=== PATIENT | male | born 1950 | race Caucasian/White ===

== ENCOUNTER 2018-02-12 18:38 | Inpatient (IN) ==
[2018-02-13] MEDS ORDERED: Bisacodyl 10 MG Supp RECTAL PRN (02:40)
[2018-02-13] MEDS ORDERED: Acetaminophen 325 MG Tablet PO PRN (02:41)
[2018-02-13] MEDS ORDERED: Melatonin 5 MG Tablet PO PRN (02:44)
[2018-02-13] MEDS ORDERED: Sod Chloride 0.9% Inj 1,000 ML IV.CONT SCH (02:45)
[2018-02-13] MEDS ORDERED: Azithromycin Inj 500 MG in Sodium Chlor 0.9% Inj 250 ML IV.SIG SCH (05:00)
[2018-02-13] MEDS ORDERED: Heparin - SQ 10,000 UNITS/ML Vial SQ SCH (06:00)
[2018-02-13 06:48] LABS: Potassium 3.8 meq/L (3.5-5.1)
[2018-02-13 06:54] LABS: Calcium 7.9 mg/dL (8.5-10.1)
[2018-02-13 07:05] LABS: Baso # (Auto) 0.1 th/mm3 (0.0-0.2); Baso % (Auto) 0.6 % (0.0-2.0); Eos # (Auto) 0.1 th/mm3 (0.0-0.4); Eos % (Auto) 0.8 % (0.0-4.0); Hematocrit 29.6 % (39.0-51.0); Hemoglobin 9.9 gm/dL (13.0-17.0); Lymph # (Auto) 1.8 th/mm3 (1.0-4.8); Lymph % (Auto) 13.5 % (9.0-44.0); Mean Corpuscular HGB Conc 33.4 % (32.0-36.0); Mean Corpuscular Hemoglobin 25.7 pg (27.0-34.0); Mean Corpuscular Volume 77.1 fL (80.0-100.0); Mean Platelet Volume 9.2 fL (7.0-11.0); Mono # (Auto) 1.3 th/mm3 (0.0-0.9); Mono % (Auto) 9.7 % (0.0-8.0); Neut # (Auto) 9.9 th/mm3 (1.8-7.7); Neut % (Auto) 75.4 % (16.0-70.0); Platelet Count 240 th/mm3 (150-450); Red Blood Count 3.83 mil/mm3 (4.50-5.90); Red Cell Distribution Width 15.2 % (11.6-17.2); White Blood Count 13.2 th/mm3 (4.0-11.0)
[2018-02-13] MEDS ORDERED: guaiFENesin 600 MG ER Tablet PO SCH (09:00)
--- NOTE | 2018-02-13 11:09 | P.HP ---
History of Present Illness Primary Care Physician: UNKNOWN Chief Complaint: Change in mentation, fever History of Present Illness: 67-year-old male with known history of hypertension, hyper lipidemia, chronic back pain, cephalgia who presented to the hospital because of altered mental status, fever, cough. Patient states that he was in normal state of health until Wednesday evening when he stated that his noticed that he was not acting his normal self. He did not improved and on Wednesday he started having fever and cough so they brought him to the hospital for evaluation. Patient was found to have a fever of 102.9. Leukocytosis. Chest x-ray showing right lower lung pneumonia. Patient was recommended admission in the hospital under sepsis criteria secondary to pneumonia. At time of evaluating patient today he is completely alert and orientated. States that he broke his fever and he is feeling much better. Patient states that he does have a headache. He does suffer from chronic cephalgia, back pain. He does go to Dr. Merchant on a regular basis for pain management and neurology. - Diagnosis (1) Sepsis (2) Leukocytosis (3) Pneumonia (4) Febrile illness Inpatient Certification: I certify that the inpatient services were ordered in accordance with Medicare regulations governing the order. This includes certification that hospital inpatient services are reasonable and necessary and in the case of services not specified as inpatient-only under 42 CFR 419.22(n), that they are appropriately provided as inpatient services in accordance to with the 2-midnight benchmark under 43 CFR 412.3(e) Estimated Total Length of Stay (Days): 3 Plans for Post Hospital Care: Home Review of Systems All other systems reviewed negative except as stated in HPI Respiratory: Reports cough Neurologic: Reports behavioral changes [facility] - History History Provided By: Patient - Medical History Medical History: Medical History (Last Updated 02/13/18 @ 10:58 by RAGHAVENDRA Hand) Hyperlipidemia Chronic back pain Chronic headaches HTN (hypertension) - Surgical History Surgical History: Surgical History (Last Updated 02/13/18 @ 10:56 by RAGHAVENDRA Hand) History of tonsillectomy H/O hernia repair H/O knee surgery - Family History Family History: Family History (Last Updated 02/13/18 @ 10:56 by RAGHAVENDRA Hand) Father Family history of colon cancer Mother Family history of congestive heart failure - Tobacco History Second Hand Smoke Exposure: No Smoking Status: Former smoker Tobacco Type: Cigarettes - Alcohol History How Often Do You Have a Drink Containing Alcohol: Never - Substance Use History Substance History: No History of Abuse - Immunization History Tetanus Immunization: <5 Years Hx Influenza Vaccine This Season: Yes Medications and Allergies Active Medications: Active Medications Acetaminophen (Tylenol) 650 mg PO Q4H PRN PRN Reason: Temp > 100.4 Al Hydroxide/Mg Hydroxide (Milk Of Magnesia Liq) 30 ml PO Q12H PRN PRN Reason: Mild Constipation Albuterol (Duoneb Neb ([place])) 1 ampul NEB Q6HR WHILE AWAKE NEB [facility] Last Admin: 02/13/18 07:28 Dose: 1 ampul Bisacodyl (Dulcolax Supp) 10 mg RECTAL DAILY PRN PRN Reason: SEVERE CONSITIPATION Citalopram Hydrobromide (Celexa) 20 mg PO DAILY [facility] Divalproex Sodium (Depakote Dr) 500 mg PO BID [facility] Guaifenesin (Mucinex Er) 600 mg PO BID [facility] Last Admin: 02/13/18 09:27 Dose: 600 mg Heparin Sodium (Porcine) (Heparin Inj) 5,000 units SQ Q8H [facility] Last Admin: 02/13/18 05:19 Dose: 5,000 units Azithromycin 500 mg/ Sodium (Chloride) 250 mls @ 250 mls/hr IV.SIG Q24H [facility] Last Infusion: 02/13/18 06:20 Dose: Infused Ceftriaxone Sodium 1,000 mg/ (Sodium Chloride) 100 mls @ 200 mls/hr IV.SIG Q24H [facility] Last Infusion: 02/13/18 04:30 Dose: Infused Sodium Chloride (Ns Inj) 1,000 mls @ 100 mls/hr IV.CONT .Q10H [facility] Last Admin: 02/13/18 03:09 Dose: 100 mls/hr Lactulose (Lactulose Liq) 30 ml PO DAILY PRN PRN Reason: SEVERE CONSITIPATION Melatonin (Melatonin) 5 mg PO HS PRN PRN Reason: INSOMNIA Last Admin: 02/13/18 03:02 Dose: 5 mg Non-Formulary Medication (Omeprazole [Omeprazole]) 40 mg PO DAILY [facility] Non-Formulary Medication (Nortriptyline [Nortriptyline]) 100 mg PO HS [facility] Ondansetron HCl (Zofran Inj) 4 mg IV.PUSH Q6H PRN PRN Reason: NAUSEA OR VOMITING Sennosides (Senokot) 17.2 mg PO Q12H PRN PRN Reason: Moderate Constipation Allergies Allergy/AdvReac Type Severity Reaction Status Date / Time codeine Allergy Severe Rash Verified 02/12/18 18:45 Home Medications Medication Instructions Recorded Confirmed Type alendronate 70 mg PO QWEEK 02/12/18 02/12/18 History citalopram 20 mg PO DAILY 02/12/18 02/12/18 History divalproex [Depakote] 500 mg PO BID 02/12/18 02/12/18 History fenofibrate 160 mg PO DAILY 02/12/18 02/12/18 History hydrocodone-acetaminophen [[place]] 1 tab PO Q6H 02/12/18 02/12/18 History lovastatin 40 mg PO DAILY 02/12/18 02/12/18 History nortriptyline 100 mg PO HS 02/12/18 02/12/18 History omeprazole 40 mg PO DAILY 02/12/18 02/12/18 History Exam Vital signs: Vital Signs 02/13/18 03:08 02/13/18 07:46 02/13/18 08:00 Temperature 98.8 F 100 F H Pulse Rate 78 91 H 91 H Respiratory Rate 18 18 20 Blood Pressure 104/54 L 112/64 Pulse Oximetry 95 95 Intake & Output 02/12/18 02/13/18 02/13/18 18:59 06:59 18:59 Intake Total 350 / 350 Output Total 450 / 450 Balance -100 / -100 Weight 77.8 kg Intake: IV 350 / 350 Azithromycin Inj 500 MG In NS 250 / 250 Inj 250 ML @ 250 mls/hr IV.SIG Q24H [place] Rx#:[id number] Rocephin Inj 1,000 MG In NS Inj 100 / 100 100 ML @ 200 mls/hr IV.SIG Q24H [place] Rx#:[id number] Output: Urine 450 / 450 Other: # Voids 4 Date of Last Bowel Movement 02/18/18 02/13/18 Weight On Admission 171 kg Narrative: GENERAL: Well-developed, well-nourished, in no acute distress. alert and orientated HEENT: Head is normocephalic without any lesions or masses noted. Facial features are symmetric. Eyes: Pupils equal round reactive to light. Extraocular muscles are intact. Conjunctivae were clear. Oropharyngeal: Pharynx without any erythema edema. Tongue is midline without deviation. Buccal mucosa is moist without any masses or lesions NECK: Supple without any masses. Trachea midline no deviation. No JVD, no bruits are appreciated CARDIAC: Regular rhythm, regular rate. S1/S2 are heard. No murmurs gallops or rubs. LUNGS: Clear to auscultation bilaterally. No wheeze, rhonchi or rales. No use of accessory muscles on inspiration or expiration. ABDOMEN: Soft, nontender. Nondistended. Bowel sounds heard in all 4 quadrants. No organomegaly or masses. Negative rebound, negative guarding EXTREMITIES: No edema, pulses are equal bilaterally. No cyanosis or clubbing NEUROLOGY: Mood and affect appear appropriate. Cranial nerves II through XII grossly intact. Muscle strength 5/5 in upper and lower extremities bilaterally. Deep tendon reflexes are 2+ in upper and lower extremities bilaterally. Results - Labs CBC & Chem 7: 02/13/18 06:04 02/13/18 06:04 Labs: Laboratory Results - last 24 hr 02/13/18 02/13/18 06:04 06:04 CBC w Diff Auto diff final WBC 13.2 H RBC 3.83 L Hgb 9.9 L Hct 29.6 L MCV 77.1 L D MCH 25.7 L MCHC 33.4 RDW 15.2 Plt Count 240 MPV 9.2 Neut % (Auto) 75.4 H Lymph % (Auto) 13.5 [place] % (Auto) 9.7 H Eos % (Auto) 0.8 Baso % (Auto) 0.6 Neut # (Auto) 9.9 H Lymph # (Auto) 1.8 [place] # (Auto) 1.3 H Eos # (Auto) 0.1 Baso # (Auto) 0.1 WBC Differential . Differential Comment . Sodium 144 Potassium 3.8 D Chloride 109 H Carbon Dioxide 27.0 Anion Gap 8 BUN 20 H Creatinine 1.40 H Estimated GFR 51 L Random Glucose 101 Calcium 7.9 L D Caprini VTE Risk Assessment Caprini VTE Risk Assessment: Moderate/High Risk (score >= 2) Caprini Risk Assessment Model: Point Value = 1 Point Value = 2 Point Value = 3 Point Value = 5 Age 41-60 Minor surgery BMI > 25 kg/m2 Swollen legs Varicose veins or History of unexplained or recurrent spontaneous Oral contraceptives or hormone replacement Sepsis (< 1 month) Serious lung disease, including pneumonia (< 1 month) Abnormal pulmonary function Acute myocardial infarction Congestive heart failure (< 1 month) History of inflammatory bowel disease Medical patient at bed rest Age 61-74 Arthroscopic surgery Major open surgery (> 45 min) Laparoscopic surgery (> 45 min) Malignancy Confined to bed (> 72 hours) Immobilizing plaster cast Central venous access Age >= 75 History of VTE Family history of VTE Factor V Leiden Prothrombin [id number] Lupus anticoagulant Anticardiolipin antibodies Elevated serum homocysteine Heparin-induced thrombocytopenia Other congenital or acquired thrombophilia Stroke (< 1 month) Elective arthroplasty Hip, pelvis, or leg fracture Acute spinal cord injury (< 1 month) Prophylaxis Regimen: Total Risk Factor Score Risk Level Prophylaxis Regimen 0-1 Low Early ambulation 2 Moderate Order ONE of the following: *Sequential Compression Device (SCD) *Heparin 5000 units SQ BID 3-4 Higher Order ONE of the following medications: *Heparin 5000 units SQ TID *Enoxaparin/Lovenox 40 mg SQ daily (WT < 150 kg, CrCl > 30 mL/min) *Enoxaparin/Lovenox 30 mg SQ daily (WT < 150 kg, CrCl > 10-29 mL/min) *Enoxaparin/Lovenox 30 mg SQ BID (WT < 150 kg, CrCl > 30 mL/min) AND/OR *Sequential Compression Device (SCD) 5 or more Highest Order ONE of the following medications: *Heparin 5000 units SQ TID (Preferred with Epidurals) *Enoxaparin/Lovenox 40 mg SQ daily (WT < 150 kg, CrCl > 30 mL/min) *Enoxaparin/Lovenox 30 mg SQ daily (WT < 150 kg, CrCl > 10-29 mL/min) *Enoxaparin/Lovenox 30 mg SQ BID (WT < 150 kg, CrCl > 30 mL/min) AND *Sequential Compression Device (SCD) Assessment and Plan - Assessment (1) Sepsis Code(s): A41.9 - Sepsis, unspecified organism Status: Acute (2) Leukocytosis Code(s): D72.829 - Elevated white blood cell count, unspecified Status: Acute (3) Pneumonia Code(s): J18.9 - Pneumonia, unspecified organism Status: Acute (4) Febrile illness Code(s): R50.9 - Fever, unspecified Status: Acute - Plan Sepsis, resolved -Patient met criteria on admission with fever, leukocytosis, pneumonia -Patient was given Zosyn in the emergency department and continued on Rocephin, Zithromax -Chest x-ray did indicate right lower lung pneumonia -Urinalysis was clear -Blood cultures negative for 1 day -Influenza testing is negative Right lower lung pneumonia -Continue to treat as community acquired pneumonia with Rocephin and Zithromax -Duo nebs every 6 hours while awake Hypertension, hyper lipidemia, chronic headaches, chronic back pain -Continue home medications DVT prevention -Subcutaneous heparin Discharge Planning: Discharge home in stable condition Activity: Ad butch. Diet: Healthy heart diet Medication per medication reconciliation Follow-up with primary medical doctor in 1 week
[2018-02-13] MEDS ORDERED: Citalopram 20 MG Tablet PO SCH (12:00)
[2018-02-13] MEDS ORDERED: Divalproex 500 MG DR Tablet PO SCH (12:00)
[2018-02-13] MEDS ORDERED: Nortriptyline 25 MG Capsule PO SCH (21:00)
== END 2018-02-13 14:10 | disposition home or self-care (01) ==
LOC: PH3 18:38 → PHEDDLT 18:38
PROVIDERS: ADMIT Hospitalist; ATTEND Hospitalist